=== PATIENT | male | born 1950 | race Two or more races ===

== ENCOUNTER 2019-03-15 11:14 | Inpatient (IN) | payer MEDICARE, MEDICAID ==
[~2019-03-15] VITALS: Ht 177.8 cm; Wt 95.3 kg
--- NOTE | 2019-03-15 11:22 | NUR ---
PT BROUGHT IN BY TRANSPORTATION FOR AMS PT ABLE TO SIGN TRASNPOT FORM
[2019-03-15 11:43] LABS: BASOPHILS # (AUTO) 0.1 /CMM (0.0-0.2); BASOPHILS % (AUTO) 1.8 % (0.0-2.0); EOSINOPHILS % (AUTO) 4.1 % (0.0-6.0); HEMATOCRIT 33 % (39-51); LYMPHOCYTES # (AUTO) 0.9 /CMM (0.8-4.8); LYMPHOCYTES % (AUTO) 11.4 % (20.0-44.0); MEAN CORPUSCULAR HGB CONC 34 g/dl (31.0-36.0); MEAN CORPUSCULAR VOLUME 87 fL (80-96); MONOCYTES # (AUTO) 0.8 /CMM (0.1-1.30); MONOCYTES % (AUTO) 11.2 % (2.0-12.0); NEUTROPHILS # (AUTO) 5.4 /CMM (1.8-8.9); NEUTROPHILS % (AUTO) 71.5 % (43.0-81.0); PLATELET COUNT (AUTO) 177 /CMM (150-450); RED BLOOD CELL COUNT(AUTO) 3.78 MIL/uL (4.5-6.0); WHITE BLOOD COUNT (AUTO) 7.6 K/uL (4.3-11.0)
--- NOTE | 2019-03-15 11:53 | NUR ---
PT NOTED TO HAVE AV SHUNT IN [place] PIV PLACED IN RT HAND TAKEN TO RADIOLOGY.
--- NOTE | 2019-03-15 11:55 | NUR ---
PT FCO SUGAR 77 BY POCT
--- NOTE | 2019-03-15 12:03 | NUR ---
CALLED FOR BED AND TURN IN MOVE PACKET
[2019-03-15 12:23] LABS: CALCIUM, SERUM 8.5 mg/dL (8.5-10.1); CREATININE 5.4 mg/dL (0.6-1.3); POTASSIUM 4.3 mmol/L (3.5-5.1)
[2019-03-15 12:44] LABS: ALBUMIN 3.3 g/dL (3.4-5.0); BILIRUBIN,DIRECT 0.1 mg/dL (0.0-0.2); BILIRUBIN,TOTAL 0.4 mg/dL (0.2-1.0); TOTAL PROTEIN, SERUM 7.7 g/dL (6.4-8.2)
--- NOTE | 2019-03-15 13:00 | NUR ---
SPOKE TO JULIANN FOR RN TO RN REPORT PT ADMITTED TO ROOM 324-2 UNDER [facility] MAYS
--- NOTE | 2019-03-15 13:04 | NUR ---
PAGED DR KELLY, WAITING FOR CALL BACK
[2019-03-15 13:30] VITALS: BP 194/100
--- NOTE | 2019-03-15 13:30 | NUR ---
silicatorrelay record clerk Note Received patient from ED via [employer]. Czech speaking. Patient currently awake, semi-Jarquin's position. Alert and oriented x2-3, able to make needs known. No acute distress. Respirations even and unlabored on room air. External configuration management consultant placed, current rhythm: sinus bradycardia at 58 bpm, asymptomatic. No complaints of pain or discomfort at this time. Peripheral IV access to the right hand 20 gauge, intact, patent and saline locked. Skin assessment completed upon admission, no skin issues noted. Sacrum intact. Personal belongings inventoried by FARIDA and documented per protocol, family took home wallet and valuables as noted. Urinal place at bedside. Oriented to unit and room. Fall and safety precautions in place: bed in lowest and locked position, side rails up x 2, bed alarm on, call light and personal possessions within reach. Floor free of clutter and well-lit. Patient verbalized understanding of safety precautions. Dr. Nunez's team paged for admission orders. Will continue to monitor and intervene as needed. Addendum: 03/15/19 at 1831 by LESLIE CONNOR RN Family present at bedside.
[2019-03-15] MEDS ORDERED: ONDANSETRON HCL/PF 4 MG/2 ML VIAL IVP PRN (14:30)
[2019-03-15] MEDS ORDERED: ZOLPIDEM TARTRATE 5 MG TABLET PO PRN (14:30)
[2019-03-15] MEDS ORDERED: Z GUARD REMEDY 2 OZ OINT TP PRN (14:30)
[2019-03-15] MEDS ORDERED: DEXTROSE 50%-WATER 50 ML DISP.SYRIN IV PRN (15:00)
[2019-03-15 16:00] VITALS: BP 193/89
--- NOTE | 2019-03-15 16:05 | NUR ---
director of instrumental music Note Per family, need to bring in medication list from home for medication reconciliation. Spoke with family about providing. Per medication recon nurse, will also call and verify medications with her after 1700. Will endorse to next RN.
--- NOTE | 2019-03-15 17:00 | NUR ---
learning solutions specialist Note Patient reports feeling weak and shaky. Checked blood sugar, low at 41. Gave OJ and crackers per protocol. Patient's dinner arrived on unit. Will administer snacks and food. Re-check of blood sugar after.
[2019-03-15] MEDS: BLOOD SUGAR DIAGNOSTIC 1 EACH STRIP IN SCH ×2 (17:28→21:51)
--- NOTE | 2019-03-15 17:47 | NUR ---
sales record clerk Note Re-check of blood sugar at 132. Patient reports no signs and symptoms of hypoglycemia at this time. Will continue to monitor patient.
--- NOTE | 2019-03-15 18:33 | NUR ---
MS RN Closing Note Patient currently awake, semi-Jarquin's position. Alert and oriented x3, able to make needs known. No acute distress, blood sugar stable. Respirations even and unlabored on room air. No complaints of pain or discomfort at this time. Peripheral IV access to the right hand 20 gauge, intact, patent and saline locked. Fall and safety precautions in place: bed in lowest and locked position, side rails up x 2, bed alarm on, call light and personal possessions within reach. Floor free of clutter and well-lit. Patient verbalized understanding of safety precautions. All needs attended to. Family present at bedside. Will endorse to to night court magistrate RN for continuity of care. Addendum: 03/15/19 at 1906 by LESLIE CONNOR RN Current rhythm: normal sinus rhythm at 64 bpm.
[2019-03-15] MEDS ORDERED: GABA800T11 PO (18:49)
[2019-03-15] MEDS ORDERED: TERA1CAP4 PO (18:49)
[2019-03-15] MEDS ORDERED: CALC667C6 PO (18:49)
[2019-03-15] MEDS ORDERED: METO100T14 PO (18:49)
[2019-03-15] MEDS ORDERED: GEMF600T5 PO (18:49)
[2019-03-15] MEDS ORDERED: PRIM50TA27 PO (18:49)
--- NOTE | 2019-03-15 19:34 | NUR ---
TELE/RN OPENING NOTES RECEIVED PATIENT IN BED, AWAKE, ALERT, REQUIRE EXTENSIVE ASSISTANCE IN ALL ADLS, FAMILY AT BEDSIDE, [place] SPEAKING AND WEAK, RESPIRATIONS EVEN AND UNLABORED, OBESE, KEPT COMFORTABLE, BED LOCKED, BED ALARM ON. INSTRUCTED TO CALL FOR HELP. PATIENT MONITORED FOR S/S OF HYPO/HYPERGLYCEMIA.
[2019-03-15 20:00] VITALS: BP 177/80
[2019-03-15 21:51] VITALS: BP 183/91
[2019-03-15] MEDS: INSULIN REGULAR, HUMAN 100 UNIT/ML 3 ML VIAL SQ PRN (21:55)
--- NOTE | 2019-03-15 23:18 | NUR ---
TELE/RN NOTES ORDER RECEIVED AND CARRIED OUT FROM MD GONSALEZ REPORTED ELEVATED BLOOD PRESSURE OF PATIENT AT 177/80, ORDER METOPROLOL 100 MG PER HOME MEDICATION AND TO GIVE NOW. WILL MONITOR.
[2019-03-15] MEDS: METOPROLOL TARTRATE 50 MG TABLET PO SCH (23:40)
[2019-03-16 00:08] VITALS: BP 190/88
[2019-03-16] MEDS: ACETAMINOPHEN 325 MG TABLET PO PRN (00:16)
--- NOTE | 2019-03-16 00:21 | NUR ---
TELE/RN NOTES PAIN MEDICATION GIVEN PER PATIENT REQUEST 01/08 GENERALIZED. WILL MONITOR.
[2019-03-16 04:00] VITALS: BP 177/85
[2019-03-16 04:05] VITALS: BP 110/60
[2019-03-16] MEDS: BLOOD SUGAR DIAGNOSTIC 1 EACH STRIP IN SCH ×4 (05:54→21:01)
--- NOTE | 2019-03-16 06:07 | NUR ---
blood sugar check at 44, patient awake, noted some cool to touch, protocol initated with glucagon iv and requested orange juice, will monitor blood sugar result after intervention.
--- NOTE | 2019-03-16 06:11 | NUR ---
blood sugar re checked at 152
--- NOTE | 2019-03-16 06:44 | NUR ---
324-2 TELE/RN NOTES PATIENT SLEPT INTERMITENTLY, COOPERATIVE TO CARE, MONITORED FOR S/S OF HYPO/HYPERGLYCEMIA, AND BLOOD PRESSURE AND PAIN MONITORING, ASSISTED WITH ALL NEEDS, KEPT COMFORTABLE, WILL MONITOR. WILL ENDORSE TO AM RN FOR CO.
[2019-03-16 06:51] LABS: CALCIUM, SERUM 8.7 mg/dL (8.5-10.1); MAGNESIUM 2.3 mg/dL (1.8-2.4); PHOSPHORUS 4.9 mg/dL (2.5-4.9); POTASSIUM 4.8 mmol/L (3.5-5.1)
[2019-03-16 07:00] VITALS: BP 192/90
[2019-03-16 07:00] LABS: CREATININE 7.6 mg/dL (0.6-1.3)
--- NOTE | 2019-03-16 07:00 | NUR ---
TELE/RN NOTES RECEIVED CRITICAL CREATININE 7.6 H, BS AT 50 BUN 46H, PATIENT BLOOD SUGAR CORRECTED WITH PROTOCOL INITIATED, TO INFORM MD FOR RESULT.
--- NOTE | 2019-03-16 07:15 | NUR ---
PHARMACY ORDER ENTRY TECHNICIAN NOTES PATIENT IN BED ALERT ORIENTED X 3. NO ACUTE DISTRESS NOTED, BREATHING UNLABORED. NO SOB NOTED. IV ACCESS PATENT AND INTACT, NO REDNESS OR SWELLING NOTED. SAFETY MEASURES IN PLACE, CALL LIGHT WITHIN REACH. WILL CONTINUE TO MONITOR ACCORDINGLY.
[2019-03-16 07:29] LABS: THYROID STIMULATING HORMONE 0.604 uIU/mL (0.358-3.74)
[2019-03-16 07:59] LABS: BASOPHILS # (AUTO) 0.1 /CMM (0.0-0.2); BASOPHILS % (AUTO) 0.8 % (0.0-2.0); EOSINOPHILS % (AUTO) 3.5 % (0.0-6.0); HEMATOCRIT 33 % (39-51); LYMPHOCYTES # (AUTO) 0.8 /CMM (0.8-4.8); LYMPHOCYTES % (AUTO) 11.4 % (20.0-44.0); MEAN CORPUSCULAR HGB CONC 33 g/dl (31.0-36.0); MEAN CORPUSCULAR VOLUME 86 fL (80-96); MONOCYTES # (AUTO) 0.9 /CMM (0.1-1.30); MONOCYTES % (AUTO) 13.5 % (2.0-12.0); NEUTROPHILS # (AUTO) 4.8 /CMM (1.8-8.9); NEUTROPHILS % (AUTO) 70.8 % (43.0-81.0); PLATELET COUNT (AUTO) 108 /CMM (150-450); RED BLOOD CELL COUNT(AUTO) 3.85 MIL/uL (4.5-6.0); WHITE BLOOD COUNT (AUTO) 6.7 K/uL (4.3-11.0)
[2019-03-16] MEDS: METOPROLOL TARTRATE 50 MG TABLET PO SCH ×2 (08:13→20:19)
[2019-03-16 08:43] LABS: APPEARANCE,URINE SL CLOUDY (CLEAR); BILIRUBIN,URINE NEGATIVE (NEGATIVE); BLOOD, URINE TRACE Ery/uL (NEGATIVE); COLOR,URINE YELLOW (YELLOW); KETONES,URINE NEGATIVE (NEGATIVE); LEUKOCYTE ESTERASE ,URINE NEGATIVE (NEGATIVE); NITRITE, URINE NEGATIVE (NEGATIVE); PH,URINE 8.5 (5.0-8.0); PROTEIN,URINE 3+ mg/dl (NEGATIVE); UGLUCOSE TRACE mg/dL (NEGATIVE); UROBILINOGEN,URINE 0.2 EU/dL (0.2)
[2019-03-16 09:30] LABS: BACTERIA,URINE None seen /HPF (None Seen); RBC,URINE 0-2 /HPF (0-2); WBC,URINE 0-2 /HPF (0-3)
[2019-03-16 09:31] LABS: SQUAMOUS EPITHELIAL CELL,UR Rare /HPF (None Seen)
--- NOTE | 2019-03-16 10:22 | NUR ---
MS RN NOTES SEEN AND EVALUATED BY DR MARA RUIZ, AWARE OF THE ELEVATED BLOOD PRESSURE.
[2019-03-16] MEDS: INSULIN REGULAR, HUMAN 100 UNIT/ML 3 ML VIAL SQ PRN ×2 (12:40→21:04)
[2019-03-16] MEDS: PRIMIDONE 50 MG TABLET PO SCH ×2 (12:43→17:52)
[2019-03-16] MEDS: GABAPENTIN 400 MG CAPSULE PO SCH ×2 (12:43→17:50)
[2019-03-16] MEDS: CALCIUM ACETATE 667 MG TABLET PO SCH ×2 (12:44→17:52)
[2019-03-16 16:00] VITALS: BP 193/93
[2019-03-16] MEDS: GEMFIBROZIL 600 MG TABLET PO SCH (17:50)
--- NOTE | 2019-03-16 17:50 | NUR ---
MS RN NOTES PATIENT NOTED TO HAVE ELEVATED BLOOD PRESSURE 195/94 DURING DIALYSIS, DR MARA RUIZ NOTIFIED. SAID OK TO GIVE MEDICATIONS ORDERED SCHEDULED FOR 1700 AND 1800. NO NEW ORDERS MADE AT THIS TIME. NO ACUTE DISTRESS NOTED ON PATIENT.
[2019-03-16] MEDS: TERAZOSIN HCL 1 MG CAPSULE PO SCH (17:52)
--- NOTE | 2019-03-16 19:00 | NUR ---
MS RN NOTES PATIENT IN BED , ALERT ORIENTED X 3. NO ACUTE DISTRESS NOTED. BREATHING UNLABORED. IV ACCESS PATENT AND INTACT. DUE MEDICATIONS GIVEN, NO ASE NOTED. NEEDS ATTENDED AND ANTICIPATED. SAFETY MEASURES IN PLACE. CALL LIGHT WITHIN REACH. DIALYSIS STILL ON GOING. ENDORSED TO NIGHT NURSE FOR CONTINUITY CARE.
--- NOTE | 2019-03-16 19:40 | NUR ---
MS RN NOTE: PATIENT RESTING IN BED, NO ACUTE DISTRESS NOTED, FAMILY AT BEDSIDE. BREATHING EVEN AND LABORED, NO SOB NOTED. IV TO LEFT HAND IN PLACE. PATIENT JUST FINISHED HD WITH 2 LITERS OUT. HD SITE TO [facility] WITH DRESSING IN PLACE. NO S/S OF HYPER/HYPOGLYCEMIA NOTED. BED LOCKED AND IN LOWEST POSITION, CALL LIGHT IN REACH. WILL CONTINUE TO MONITOR. Addendum: 03/17/19 at 0610 by DARRYL PLUNKETT RN CLARIFICATION OF IV SITE AND HD SITE. IV TO RIGHT HAND IN PLACE, AND HD SITE TO [facility].
[2019-03-16 20:00] VITALS: BP 185/75
--- NOTE | 2019-03-16 21:05 | NUR ---
MS RN NOTE: PATIENT BLOOD SUGAR LEVEL 183MG/DL, 3 UNITS OF INSULIN NEEDED PER SLIDING SCALE. NO S/S OF HYPO/HYPERGLYCEMIA NOTED. WILL CONTINUE TO MONITOR.
--- NOTE | 2019-03-17 06:09 | NUR ---
MS RN NOTE: PATIENT RESTING IN BED, NO ACUTE DISTRESS NOTED. BREATHING EVEN AND LABORED, NO SOB NOTED. IV TO RIGHT HAND IN PLACE. HD SITE TO [facility] WITH DRESSING IN PLACE. PATIENT BLOOD SUGAR LEVEL 105MG/DL, NO INSULIN NEEDED PER SLIDING SCALE. NO S/S OF HYPER/HYPOGLYCEMIA NOTED. BED LOCKED AND IN LOWEST POSITION, CALL LIGHT IN REACH. WILL ENDORSE TO DAY NURSE TO CONTINUE WITH PLAN OF CARE.
[2019-03-17] MEDS: BLOOD SUGAR DIAGNOSTIC 1 EACH STRIP IN SCH ×4 (06:49→22:00)
[2019-03-17 08:00] VITALS: BP 185/86
[2019-03-17] MEDS: CALCIUM ACETATE 667 MG TABLET PO SCH ×3 (08:00→17:22)
[2019-03-17 08:48] LABS: BASOPHILS # (AUTO) 0.1 /CMM (0.0-0.2); BASOPHILS % (AUTO) 1.1 % (0.0-2.0); EOSINOPHILS % (AUTO) 5.9 % (0.0-6.0); HEMATOCRIT 37 % (39-51); HEMOGLOBIN 11.9 g/dL (13.5-17.5); LYMPHOCYTES # (AUTO) 0.8 /CMM (0.8-4.8); LYMPHOCYTES % (AUTO) 15.3 % (20.0-44.0); MEAN CORPUSCULAR HGB CONC 32 g/dl (31.0-36.0); MEAN CORPUSCULAR VOLUME 87 fL (80-96); MONOCYTES # (AUTO) 0.7 /CMM (0.1-1.30); MONOCYTES % (AUTO) 13.2 % (2.0-12.0); NEUTROPHILS # (AUTO) 3.4 /CMM (1.8-8.9); NEUTROPHILS % (AUTO) 64.5 % (43.0-81.0); PLATELET COUNT (AUTO) 111 /CMM (150-450); RED BLOOD CELL COUNT(AUTO) 4.23 MIL/uL (4.5-6.0); WHITE BLOOD COUNT (AUTO) 5.3 K/uL (4.3-11.0)
[2019-03-17] MEDS: GABAPENTIN 400 MG CAPSULE PO SCH ×3 (09:02→17:22)
[2019-03-17] MEDS: GEMFIBROZIL 600 MG TABLET PO SCH ×2 (09:02→17:22)
[2019-03-17] MEDS: METOPROLOL TARTRATE 50 MG TABLET PO SCH ×2 (09:03→21:25)
[2019-03-17] MEDS: AMLODIPINE BESYLATE 10 MG TABLET PO SCH (09:03)
[2019-03-17] MEDS: PRIMIDONE 50 MG TABLET PO SCH ×3 (09:03→17:22)
[2019-03-17 09:17] LABS: FERRITIN 951 ng/mL (8-388)
[2019-03-17 09:42] LABS: IRON, SERUM 92 ug/dl (50-175); TOTAL IRON BINDING CAPACITY 162 ug/dl (250-450)
--- NOTE | 2019-03-17 11:21 | NUR ---
MS RN NOTES TOOK OVER CARE, REPORT GIVEN BY DELMA GUERRIER. NO ACUTE DISTRESS. SAFETY MEASURES IN PLACE. CALL LIGHT WITHIN REACH WILL CONTINUE TO MONITOR ACCORDINGLY.
--- NOTE | 2019-03-17 11:23 | NUR ---
rEPORT GIVEN TO CÉSAR GUERRIER FOR CONTINUE PT CARE , PT COMFORTABLE AT TIME OF REPORT
[2019-03-17] MEDS: INSULIN REGULAR, HUMAN 100 UNIT/ML 3 ML VIAL SQ PRN ×2 (12:03→21:22)
[2019-03-17 16:00] VITALS: BP 180/86
[2019-03-17] MEDS: TERAZOSIN HCL 1 MG CAPSULE PO SCH (17:22)
--- NOTE | 2019-03-17 18:44 | NUR ---
MS RN NOTES PATIENT IN BED , ALERT ORIENTED X 3. NO ACUTE DISTRESS NOTED. BREATHING UNLABORED. IV ACCESS PATENT AND INTACT. PATIENT EAT DINNER 100% , HAD APPLE JUICE. NO S/SX OF HYPOGLYCEMIA OR HYPERGLYCEMIA NOTED. DUE MEDICATIONS GIVEN, NO ASE NOTED. NEEDS ATTENDED AND ANTICIPATED. SAFETY MEASURES IN PLACE. CALL LIGHT WITHIN REACH. DIALYSIS STILL ON GOING. WILL ENDORSE TO NIGHT NURSE FOR CONTINUITY CARE. Addendum: 03/17/19 at 1850 by DORY ORTIZ RN DISREGARD ABOVE NOTES
--- NOTE | 2019-03-17 19:00 | NUR ---
MS RN NOTES PATIENT IN BED , ALERT ORIENTED X 3. NO ACUTE DISTRESS NOTED. BREATHING UNLABORED. IV ACCESS PATENT AND INTACT. PATIENT ATE DINNER 100% , HAD APPLE JUICE. NO S/SX OF HYPOGLYCEMIA OR HYPERGLYCEMIA NOTED. DUE MEDICATIONS GIVEN, NO ASE NOTED. NEEDS ATTENDED AND ANTICIPATED. SAFETY MEASURES IN PLACE. CALL LIGHT WITHIN REACH. ENDORSE TO NIGHT NURSE FOR CONTINUITY CARE.
--- NOTE | 2019-03-17 19:10 | NUR ---
MS RN NOTES RECEIVED PT IN BED AWAKE AND ABLE TO MAKE NEEDS KNOWN WITH FAMILY AT BEDSIDE. PT A/O X3. RESPIRATIONS EVEN AND UNLABORED WITH NO S/S OF ACUTE DISTRESS OR SOB NOTED. IV ON RHAND #20G PATENT AND INTACT WITH NO S/S OF INFILTRATION OR REDNESS. PT DENIES PAIN AT THIS TIME. SAFETY MEASURES IN PLACE WITH BED IN LOWEST LOCKED POSITION WITH SIDE RAILS UP X2. CALL LIGHT WITHIN REACH. WILL CONTINUE TO MONITOR.
[2019-03-17 20:45] VITALS: BP 161/78
[2019-03-18 07:15] LABS: BASOPHILS # (AUTO) 0.1 /CMM (0.0-0.2); EOSINOPHILS % (AUTO) 6.4 % (0.0-6.0); HEMATOCRIT 33 % (39-51); HEMOGLOBIN 11.1 g/dL (13.5-17.5); LYMPHOCYTES # (AUTO) 0.9 /CMM (0.8-4.8); LYMPHOCYTES % (AUTO) 16.8 % (20.0-44.0); MEAN CORPUSCULAR HGB CONC 33 g/dl (31.0-36.0); MEAN CORPUSCULAR VOLUME 86 fL (80-96); MONOCYTES # (AUTO) 0.9 /CMM (0.1-1.30); NEUTROPHILS # (AUTO) 3.3 /CMM (1.8-8.9); NEUTROPHILS % (AUTO) 58.8 % (43.0-81.0); PLATELET COUNT (AUTO) 106 /CMM (150-450); RED BLOOD CELL COUNT(AUTO) 3.87 MIL/uL (4.5-6.0); WHITE BLOOD COUNT (AUTO) 5.6 K/uL (4.3-11.0)
--- NOTE | 2019-03-18 07:22 | NUR ---
MS RN NOTES PT IN BED AWAKE AND ABLE TO MAKE NEEDS KNOWN. PT A/O X3 AND SERBIAN SPEAKING. RESPIRATIONS EVEN AND UNLABORED WITH NO S/S OF ACUTE DISTRESS OR SOB NOTED THROUGHOUT SHIFT. IV ON RHAND #20G PATENT AND INTACT WITH NO S/S OF INFILTRATION OR REDNESS. PT DENIES PAIN AT THIS TIME. SAFETY MEASURES IN PLACE WITH BED IN LOWEST LOCKED POSITION WITH SIDE RAILS UP X2. CALL LIGHT WITHIN REACH. WILL ENDORSE TO ONCOMING NURSE FOR CYNTHIA.
[2019-03-18 07:30] LABS: ALBUMIN 2.9 g/dL (3.4-5.0); BILIRUBIN,TOTAL 0.4 mg/dL (0.2-1.0); CALCIUM, SERUM 8.7 mg/dL (8.5-10.1); MAGNESIUM 2.1 mg/dL (1.8-2.4); PHOSPHORUS 4.6 mg/dL (2.5-4.9); POTASSIUM 5.5 mmol/L (3.5-5.1); TOTAL PROTEIN, SERUM 7.1 g/dL (6.4-8.2)
[2019-03-18 07:34] LABS: CREATININE 8.7 mg/dL (0.6-1.3)
--- NOTE | 2019-03-18 07:35 | NUR ---
MS RN OPENING NOTES RECEIVED PT IN BED, AWAKE. A/O X2-3, UZBEK SPEAKING. TOLERATING RA, WITH NO ACUTE RESPIRATORY DISTRESS NOTED. PT DENIES ANY PAIN OR DISCOMFORT AT THIS TIME. PIV RIGHT HAND G20 SL, FLUSHED WITH NS INTACT AND OPERATIONAL. LFA HD SITE NOTED. PT DENIES ANY QUESTIONS AND CONCERNS AT THIS MOMENT. PT KEPT COMFORTABLE. PT'S BED IN LOWEST, LOCKED POSITION WITH SR X2. CALL LIGHT AND FLUID KEPT WITHIN REACH. WILL CONTINUE PLAN OF CARE.
[2019-03-18] MEDS: BLOOD SUGAR DIAGNOSTIC 1 EACH STRIP IN SCH ×5 (07:41→21:44)
[2019-03-18 08:00] VITALS: BP 198/94
[2019-03-18] MEDS: METOPROLOL TARTRATE 50 MG TABLET PO SCH ×2 (08:06→21:06)
[2019-03-18] MEDS: GABAPENTIN 400 MG CAPSULE PO SCH ×3 (08:06→17:00)
[2019-03-18] MEDS: PRIMIDONE 50 MG TABLET PO SCH ×3 (08:06→17:01)
[2019-03-18] MEDS: GEMFIBROZIL 600 MG TABLET PO SCH ×2 (08:06→17:00)
[2019-03-18] MEDS: AMLODIPINE BESYLATE 10 MG TABLET PO SCH (08:07)
[2019-03-18] MEDS: CALCIUM ACETATE 667 MG TABLET PO SCH ×3 (08:09→17:00)
[2019-03-18] MEDS ORDERED: LISI10TA5 PO (08:44)
[2019-03-18] MEDS ORDERED: AMLO10TA7 PO (08:44)
[2019-03-18] MEDS ORDERED: TERA2CAP4 PO (08:44)
[2019-03-18 08:49] LABS: EOSINOPHILS % (MANUAL) 3 % (0-4); LYMPHOCYTES % (MANUAL) 21 % (16-48); MONOCYTES % (MANUAL) 13 % (0-11.0); NEUTROPHILS % (MANUAL) 63 (42-76)
[2019-03-18 09:45] VITALS: BP 187/92
[2019-03-18] MEDS: INSULIN REGULAR, HUMAN 100 UNIT/ML 3 ML VIAL SQ PRN ×2 (11:48→21:15)
[2019-03-18] MEDS ORDERED: LISINOPRIL (10MG) 10 MG TABLET PO SCH (12:00)
[2019-03-18 16:00] VITALS: BP 163/82
--- NOTE | 2019-03-18 17:05 | NUR ---
MS RN NOTES PT WILL BE DISCHARGE TO [facility]. GAVE REPORT TO OREN/RN AT SNF. ROSA/[facility] AWARE OF TRANSFER, AMBULANCE WILL COME TO [facility] AT 1930 PER CM. SPOUSE JOSSELYN MADE AWARE OF TRANSFER WELL VIA PHONE. PT ON GOING DIALYSIS WELL. WILL CONTINUE TO MONITOR.
[2019-03-18] MEDS: TERAZOSIN HCL 1 MG CAPSULE PO SCH (18:39)
[2019-03-18] MEDS: ACETAMINOPHEN 325 MG TABLET PO PRN (18:40)
--- NOTE | 2019-03-18 19:15 | NUR ---
RN denicesurines notes Received PT from morning nurse. PT is sitting in bed alert and oriented X3 moldovan speaking. Respiration is equal and unlabored. No sign of distress or pain present at this time. No nausea and vomiting. PT just had dialysis done today. IV is intact and patent and flush without resistance. Bed at low position and call light is within reach. PT will be discharged today. Will continue to monitor.
--- NOTE | 2019-03-18 19:32 | NUR ---
MS RN CLOSING NOTES PT IN THE CAHAIR. TOLERATING RA WITH NO ACUTE RESPIRATORY DISTRESS NOTED. PT DENIES ANY PAIN OR DISCOMFORT AT THIS TIME. PT AWARE OF SCHEDULED DISCHARGE. PT PREFERS NOT TO TAKE PICTURE OF LFA DUE TO RECENT HEMODIALYSIS, PREFERS NOT TO TAKE OFF THE DRESSINGS. S/P HD AT 1815, OUTPUT OF 2600ML WITH BP OF 168/88 AND HR OF 88. SCHEDULED TERAZOSIN GIVEN AT 1840. RECHECKED BP AT 1910 WITH SBP OF 176. /DR TEJADA MADE AWARE. AWAITING FOR RESPONSE. NIGHT NURSE AWARE WELL. PT SIGNED INVENTORY LIST. ALL NEEDS AND CARE ATTENDED. ENDORSED TO GRAVITY PROSPECTOR NURSE FOR CYNTHIA.
--- NOTE | 2019-03-18 19:51 | NUR ---
RN NOTES DR. RUIZ GAVE AN ORDER GAVE AN ORDER FOR BLOOD PRESSURE 176/89 CATAPRES TTS 1 PATCH, ORDER NOTED AND CARRIED OUT
[2019-03-18 20:00] VITALS: BP 144/80
--- NOTE | 2019-03-18 20:27 | NUR ---
RN NOTES CALLED AMBULANCE AND SPOKE TO JOHN BECAUSE PT SUPPOSED TO BE PICK-UP AT 1930 AND PT IS ALREADY ASKING WHAT TIME THE AMBULANCE WILL COME.. [facility] STATED THAT THE HEEL PAINTER WILL BE DELAY FOR 1 HOUR AND THE PT. WILL BE PICK-UP AT 2129
--- NOTE | 2019-03-18 20:31 | NUR ---
RN HECTOR CASTELLANO FROM AMBULANCE CALLED AND INFORMED ME THAT PT. WILL BE PICK-UP OF 2244 INSTEAD OF 2129.. WE INFORMED THE THAT PT. HAS BEEN READY SINCE 1899 BECAUSE THE PICK-UP SHOULD BE AT 1929
--- NOTE | 2019-03-18 20:39 | NUR ---
RN NOTES CALLED [facility] AND INFORMED HER THAT PT. WILL BE PICK-UP AT 2244 INSTEAD OF 1929.. LISA STATED THAT THEY WILL ACCEPT THE PT. EVEN THE PT. COMES LATE.. CHARGE NURSE MADE AWARE
[2019-03-18] MEDS: CLONIDINE HCL 0.1MG/24H PTWK 1 EA PATCH TD ONE ×2 (21:29→23:00)
[2019-03-18 23:00] VITALS: BP 163/80
--- NOTE | 2019-03-18 23:00 | NUR ---
RN medsurg discharge note PT is alert and oriented X3. PT is in stable condition. Pt is not in pain or any distress at this time. Respiration equal and unlabored. IV site has been removed. All Meds have beeen given including Clonidine patch (PT's BP was 163/80 and pulse was 60, temperature was 97.8 degree fahrenheit and O2 sat wa 98%). D/C instruction sheet given. PT will be transfer to [facility]. PT escorted via rney and all belonging sent with patient.
== END 2019-03-18 23:00 | DRG 637 ==
LOC: ER 11:16 → TELE 13:46 → MED 03-16 08:56
PROVIDERS: ADMIT Internal Medicine; ATTEND Internal Medicine
PROC: 5A1D70Z Performance of Urinary Filtration, Intermittent, Less than 6 Hours Per Day (ICD-10-PCS; principal; 2019-03-16)
PROC: 5A1D70Z Performance of Urinary Filtration, Intermittent, Less than 6 Hours Per Day (ICD-10-PCS; 2019-03-18)
DX: E11.649 Type 2 diabetes mellitus with hypoglycemia without coma (principal); G93.41 Metabolic encephalopathy; I12.0 Hypertensive chronic kidney disease with stage 5 chronic kidney disease or end stage renal disease; E44.1 Mild protein-calorie malnutrition; G93.40 Encephalopathy, unspecified; N18.6 End stage renal disease; E11.22 Type 2 diabetes mellitus with diabetic chronic kidney disease; E78.5 Hyperlipidemia, unspecified; I25.10 Atherosclerotic heart disease of native coronary artery without angina pectoris; Z98.61 Coronary angioplasty status; D64.9 Anemia, unspecified; Z86.73 Personal history of transient ischemic attack (TIA), and cerebral infarction without residual deficits; Q78.9 Osteochondrodysplasia, unspecified; N40.0 Benign prostatic hyperplasia without lower urinary tract symptoms; Z79.899 Other long term (current) drug therapy; E11.42 Type 2 diabetes mellitus with diabetic polyneuropathy; Z99.2 Dependence on renal dialysis
CPT/HCPCS: 36415; 70450-TC; 71045-TC; 80048-TC; 80053-TC; 80061-TC; 80076-TC; 81000-TC; 82728-TC; 82962-TC; 83540-TC; 83735-TC; 84100-TC; 84443-TC; 84484-TC; 85025-TC; 85730-TC; 86706; 86803; 87081-TC; 87086-TC; 87340; 90935-TC; 93307-TC; 93880-TC; G0378; J1815